=== PATIENT | female | born 1960 | race American Indian/Alaskan Native ===

== ENCOUNTER 2016-08-24 12:40 | Emergency (ER) | payer OTHER ==
[2016-08-24] MEDS ORDERED: TYLENOL ONE (20:12)
[2016-08-24] MEDS: TYLENOL PO ONE (20:25)
[2016-08-24 20:58] VITALS: BP 165/110
== END 2016-08-24 23:10 | disposition left against medical advice (07) ==
LOC: ED 12:40
DX: R51 Headache (principal); R06.02 Shortness of breath; R42 Dizziness and giddiness; Z53.21 Procedure and treatment not carried out due to patient leaving prior to being seen by health care provider
CPT/HCPCS: 93005; 93010

== ENCOUNTER 2017-01-22 22:42 | Emergency (ER) | payer OTHER ==
--- NOTE | 2017-01-23 03:38 | XRay Report ---
FINAL REPORT EXAM: XR KNEE 1-2V RT HISTORY: Right knee swelling and pain COMPARISON: None available. FINDINGS: Two views of right knee obtained. Bony structures are intact. Joint spaces are preserved. No acute fracture dislocation. IMPRESSION: No acute bony abnormality.
--- NOTE | 2017-01-23 03:45 | Emergency Department Report ---
ED Lower Extremity HPI - General Chief Complaint: Extremity Injury, Lower Stated Complaint: RIGHT KNEE PAIN Time Seen by Provider: 01/23/17 02:56 Source: patient Mode of arrival: Ambulatory Limitations: No Limitations - History of Present Illness Complaint: knee injury (right knee injury) - Related Data Previous Rx's Medication Instructions Recorded Last Taken Type Naproxen [Naprosyn TAB] 500 mg PO BID PRN #30 tablet 01/23/17 Unknown Rx Allergies Allergy/AdvReac Type Severity Reaction Status Date / Time clarithromycin [From Biaxin] Allergy Hives Verified 08/24/16 13:24 meperidine HCl [From Demerol] Allergy Shortness Verified 08/24/16 13:24 of Breath ED Review of Systems ROS: Stated complaint: RIGHT KNEE PAIN Other details as noted in HPI ED Past Medical Hx - Past Medical History Previous Medical History?: Yes Hx Hypertension: Yes - Surgical History Past Surgical History?: Yes Additional Surgical History: HYSTO - Social History Smoking Status: Former Smoker Substance Use Type: None - Medications Home Medications: Home Medications Medication Instructions Recorded Confirmed Last Taken Type Naproxen [Naprosyn TAB] 500 mg PO BID PRN #30 tablet 01/23/17 Unknown Rx ED Physical Exam - General Limitations: No Limitations ED Course Vital Signs 01/23/17 00:02 Temperature 98.4 F Pulse Rate 87 Respiratory 18 Rate Blood Pressure 135/92 O2 Sat by Pulse 96 Oximetry Critical care attestation.: If time is entered above; I have spent that time in minutes in the direct care of this critically ill patient, excluding procedure time. ED Disposition Clinical Impression: Sprain of right knee Qualifiers: Encounter type: initial encounter Involved ligament of knee: medial collateral ligament Qualified Code(s): S83.411A - Sprain of medial collateral ligament of right knee, initial encounter Disposition: - TO HOME OR SELFCARE Is pt being admited?: No Does the pt Need Aspirin: No Condition: Stable Instructions: Knee Sprain (ED), Knee Immobilizer (ED), RICE Therapy (ED) Prescriptions: Naproxen [Naprosyn TAB] 500 mg PO BID PRN #30 tablet PRN Reason: Pain Referrals: JANICE RUST MD [Staff Physician] - 3-[address] [facility] [Provider Group] - 3-5 Days [facility] [Provider Group] - 3-5 Days [facility] [Outside] - 3-5 Days Forms: Work/School Release Form(ED) Time of Disposition: 03:43
[2017-01-23 05:18] VITALS: BP 136/91
== END 2017-01-23 05:17 | disposition home or self-care (01) ==
LOC: ED 22:42
DX: S83.411A Sprain of medial collateral ligament of right knee, initial encounter (principal); I10 Essential (primary) hypertension; Z87.891 Personal history of nicotine dependence